=== PATIENT | female | born 1970 | race Caucasian/White ===

== ENCOUNTER 2019-08-31 11:09 | Emergency (ER) | payer BC, SELFPAY ==
--- NOTE | 2019-08-31 11:38 | RAD ---
XR Chest 1 View Portable History: Reason For Study Comparison: Radiograph February 2013 Findings: Lungs are clear. No pneumothorax. No effusion. No acute osseous abnormality. Impression: No acute intrathoracic abnormality.
[2019-08-31 12:24] LABS: #Basophils 0.1 thou/uL (0.0-0.2); #Eosinphils 0.2 thou/uL (0.0-0.7); #Lymphocytes 1.3 thou/uL (1.20-3.40); #Monocytes 0.6 thou/uL (0.11-0.59); #Neutrophils 5.4 thou/uL (1.40-6.50); %Basophils 0.7 % (0.0-1.0); %Eosinophils 2.4 % (0.0-10.0); %Lymphocytes 17.1 % (21.0-51.0); %Monocytes 8.2 % (0.0-10.0); %Neutrophils 71.5 % (42.0-75.0); Hemoglobin 13.9 g/dL (12.0-16.0); Mean Corpuscular HGB CONC 34.5 g/dL (32.0-36.0); Mean Corpuscular Volume 92.8 fL (78.0-98.0); Mean Platelet Volume 5.8 fL (7.4-10.4); Platelet Count 389 thou/uL (130-400); RBC Distribution Width 10.6 % (11.5-14.5); Red Blood Cell (RBC) Count 4.35 mill/uL (4.20-5.40); White Blood Cell (WBC) Count 7.6 thou/uL (4.8-10.8)
[2019-08-31 12:45] LABS: ALT (SGPT) 11 U/L (8-55); AST (SGOT) 16 U/L (5-34); Albumin 4.5 g/dL (3.5-5.0); Alkaline Phosphatase 81 U/L (40-110); Anion Gap 11 mmol/L (10-20); BUN (Urea Nitrogen) 10 mg/dL (7.0-18.7); Bilirubin, Total 0.4 mg/dL (0.2-1.2); Calc. Creatinine Clearance 0 mL/min (70-130); Calcium 9.3 mg/dL (7.8-10.44); Carbon Dioxide 26 mmol/L (22-29); Chloride 105 mmol/L (98-107); Estimated GFR-MDRD 69; Globulin 2.5 g/dL (2.4-3.5); Glucose 98 mg/dL (70-105); Lipase 18 U/L (8-78); Potassium 3.9 mmol/L (3.5-5.1); Sodium 138 mmol/L (136-145)
== END 2019-08-31 15:37 | disposition home or self-care (01) ==
LOC: ERS 11:09
DX: R00.2 Palpitations (principal); E03.9 Hypothyroidism, unspecified; I49.9 Cardiac arrhythmia, unspecified; F41.9 Anxiety disorder, unspecified; F32.9 Major depressive disorder, single episode, unspecified; Z79.899 Other long term (current) drug therapy
CPT/HCPCS: 36415; 71045; 80053; 83690; 83735; 84443; 84484; 85025; 93005

== ENCOUNTER 2020-07-14 09:04 | Outpatient (CLI) | payer OTHER ==
--- NOTE | 2020-07-14 10:31 | ULT ---
US Abdominal: 07/14/2020 9:08 AM CLINICAL HISTORY: Right upper quadrant abdominal pain. STUDY: Complete abdominal ultrasound COMPARISON: CTA chest 08/18/2011 FINDINGS: Liver: Size: Normal. Echogenicity: Normal. Contour: Smooth. Mass: 2.3 cm hyperechoic well-circumscribed mass in the right lobe Common bile duct: 2 mm Gallbladder: No shadowing gallstones. There is focal gallbladder wall thickening along the fundus. Pancreas: Head, body, and tail appear normal. Inferior vena cava: Normal in caliber Aorta: Normal in caliber Spleen: No focal lesions. Spleen measuring 9.5 cm in length. Right kidney: No pelvicalyceal dilatation. Right kidney measuring 11.4 cm in length. Left kidney: No pelvicalyceal dilatation. 1.5 cm cyst in the midportion of the left kidney. Left kidn ey measuring 10.6 cm in length. IMPRESSION: 1. Well-circumscribed hyperechoic mass in the right lobe of the liver may represent a hemangioma. A C T of the abdomen per liver mass protocol is recommended for further evaluation. 2. Nonspecific focal gallbladder wall thickening. 3. Left renal cyst
== END 2020-07-14 09:05 | disposition home or self-care (01) ==
LOC: SCSULT 09:04
PROVIDERS: ATTEND Internal Medicine
DX: R10.11 Right upper quadrant pain (principal); R14.0 Abdominal distension (gaseous); R11.0 Nausea; R10.30 Lower abdominal pain, unspecified; R19.7 Diarrhea, unspecified; N28.1 Cyst of kidney, acquired; K82.8 Other specified diseases of gallbladder; R16.0 Hepatomegaly, not elsewhere classified
CPT/HCPCS: 93975

== ENCOUNTER 2022-10-12 13:54 | Outpatient (CLI) | payer OTHER | END 2022-10-12 13:55 | disposition home or self-care (01) | LOC: BICMAMMO 13:54 | PROVIDERS: ATTEND Student in an Organized Health Care Education/Training Program | DX: N63.20 Unspecified lump in the left breast, unspecified quadrant (principal) | CPT/HCPCS: 77066; G0279 ==